=== PATIENT | female | born 2000 | race Caucasian/White ===

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

== ENCOUNTER 2019-10-30 20:23 | Emergency (ER) | payer MEDICAID, OTHER ==
--- NOTE | 2019-10-30 20:59 | EDM.PDOC ---
ED HPI GENERAL MEDICAL PROBLEM - General Chief Complaint: Gastrointestinal Problem Stated Complaint: VOMITING,WEAK,LOW TEMP Time Seen by Provider: 10/30/19 20:45 Source of Information: Reports: Patient History Limitations: Reports: No Limitations - History of Present Illness INITIAL COMMENTS - FREE TEXT/NARRATIVE: pt arrived very weak. She bnerly passed out twice today. She started vomiting late yesterday and she has vomited about 20 times, She has not had diarrhea. She does faint fsirly easily. She has not had a fever. When her checked it at home it was on the low side. She continues to be very nauseated. Onset: Today, Sudden Duration: Hour(s):, Other (pt is not having severe abdomanal pain. She did eat some liberian food last evening and she wondered if that caused a problem. ) Location: Reports: Abdomen Associated Symptoms: Reports: Loss of Appetite, Nausea/Vomiting, Syncope, Other (pt had marked weakness at home. 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 ) : Reports: No Symptoms Musculoskeletal: Reports: No Symptoms Skin: Reports: No Symptoms Neurological: Reports: No Symptoms Psychiatric: Reports: Anxiety ED EXAM, GI/ABD - Physical Exam Exam: See Below Text/Narrative:: pt arrived with a history of vomiting multiple times starting last pm. She was very weak today and nearly passed out several times. She has not held anything down today. SShe has not had severe abdomanal pain. Exam Limited By: No Limitations General Appearance: Alert, Anxious, Mild Distress Ears: Normal TMs Nose: Normal Inspection Throat/Mouth: Normal Inspection Head: Atraumatic Neck: Normal Inspection Respiratory/Chest: No Respiratory Distress Cardiovascular: Regular Rate, Rhythm, Tachycardia GI/Abdominal Exam: Soft, Non-Tender (Female) Exam: Deferred Rectal (Female) Exam: Deferred Back Exam: Normal Inspection Extremities: Normal Inspection Neurological: Alert, Oriented, Normal Cognition Psychiatric: Anxious Course - Vital Signs Last Recorded V/S: Last Vital Signs Temp 37.3 C 10/30/19 20:51 Pulse 92 10/30/19 20:51 Resp 16 10/30/19 20:51 BP 119/73 10/30/19 20:51 Pulse Ox 99 10/30/19 20:51 - Orders/Labs/Meds Orders: Active Orders 24 hr Category Date Time Status Sodium Chloride 0.9% [Normal Saline] 1,000 ml Med 10/30/19 21:15 Active IV ASDIRECTED Sodium Chloride 0.9% [Normal Saline] 1,000 ml Med 10/30/19 22:00 Active IV ASDIRECTED Medication Orders Sodium Chloride (Normal Saline) 1,000 mls @ 999 mls/hr IV ASDIRECTED EPIFANIO Last Admin: 10/30/19 21:33 Dose: 999 mls/hr Sodium Chloride (Normal Saline) 1,000 mls @ 999 mls/hr IV ASDIRECTED EPIFANIO Labs: Laboratory Tests 10/30/19 10/30/19 10/30/19 Range/Units 21:14 21:14 21:46 WBC 9.8 (4.5-11.0) K/uL RBC 5.00 (3.30-5.50) M/uL Hgb 14.1 D (12.0-15.0) g/dL Hct 41.8 (36.0-48.0) % MCV 84 (80-98) fL MCH 28 (27-31) pg MCHC 34 (32-36) % Plt Count 258 (150-400) K/uL Neut % (Auto) 63 (36-66) % Lymph % (Auto) 20 L (24-44) % [place] % (Auto) 16 H (2-6) % Eos % (Auto) 1 L (2-4) % Baso % (Auto) 0 (0-1) % Sodium 141 (140-148) mmol/L Potassium 3.8 (3.6-5.2) mmol/L Chloride 104 (100-108) mmol/L Carbon Dioxide 26 (21-32) mmol/L Anion Gap 10.9 (5.0-14.0) mmol/L BUN 16 (7-18) mg/dL Creatinine 0.8 (0.6-1.0) mg/dL Est Cr Clr Drug Dosing 102.97 mL/min Estimated GFR (MDRD) > 60 (>60) Glucose 99 (74-106) mg/dL Calcium 9.8 (8.5-10.1) mg/dL Total Bilirubin 1.2 H (0.2-1.0) mg/dL AST 50 H (15-37) U/L ALT 32 (12-78) U/L Alkaline Phosphatase 96 (46-116) U/L Total Protein 7.6 (6.4-8.2) g/dL Albumin 4.3 (3.4-5.0) g/dL Globulin 3.3 (2.3-3.5) g/dL Albumin/Globulin Ratio 1.3 (1.2-2.2) Urine Color [place] A (YELLOW) Urine Appearance Slightly cloudy A (CLEAR) Urine pH 7.0 (5.0-8.0) Ur Specific [place] 1.025 (1.008-1.030) Urine Protein 30 H (NEGATIVE) mg/dL Urine Glucose (UA) Negative (NEGATIVE) mg/dL Urine Ketones 40 H (NEGATIVE) mg/dL Urine Occult Blood Trace-intact H (NEGATIVE) Urine Nitrite Negative (NEGATIVE) Urine Bilirubin Small H (NEGATIVE) Urine Urobilinogen 1.0 (0.2-1.0) EU/dL Ur Leukocyte Esterase Negative (NEGATIVE) Urine RBC Not seen (0-5) Urine WBC 5-10 H (0-5) Ur Epithelial Cells Many Amorphous Sediment Few Urine Bacteria Not seen Urine Mucus Few Urine HCG, Qual 10/30/19 Range/Units 21:46 WBC (4.5-11.0) K/uL RBC (3.30-5.50) M/uL Hgb (12.0-15.0) g/dL Hct (36.0-48.0) % MCV (80-98) fL MCH (27-31) pg MCHC (32-36) % Plt Count (150-400) K/uL Neut % (Auto) (36-66) % Lymph % (Auto) (24-44) % [place] % (Auto) (2-6) % Eos % (Auto) (2-4) % Baso % (Auto) (0-1) % Sodium (140-148) mmol/L Potassium (3.6-5.2) mmol/L Chloride (100-108) mmol/L Carbon Dioxide (21-32) mmol/L Anion Gap (5.0-14.0) mmol/L BUN (7-18) mg/dL Creatinine (0.6-1.0) mg/dL Est Cr Clr Drug Dosing mL/min Estimated GFR (MDRD) (>60) Glucose (74-106) mg/dL Calcium (8.5-10.1) mg/dL Total Bilirubin (0.2-1.0) mg/dL AST (15-37) U/L ALT (12-78) U/L Alkaline Phosphatase (46-116) U/L Total Protein (6.4-8.2) g/dL Albumin (3.4-5.0) g/dL Globulin (2.3-3.5) g/dL Albumin/Globulin Ratio (1.2-2.2) Urine Color (YELLOW) Urine Appearance (CLEAR) Urine pH (5.0-8.0) Ur Specific [place] (1.008-1.030) Urine Protein (NEGATIVE) mg/dL Urine Glucose (UA) (NEGATIVE) mg/dL Urine Ketones (NEGATIVE) mg/dL Urine Occult Blood (NEGATIVE) Urine Nitrite (NEGATIVE) Urine Bilirubin (NEGATIVE) Urine Urobilinogen (0.2-1.0) EU/dL Ur Leukocyte Esterase (NEGATIVE) Urine RBC (0-5) Urine WBC (0-5) Ur Epithelial Cells Amorphous Sediment Urine Bacteria Urine Mucus Urine HCG, Qual Negative Meds: Medications Generic Name Dose Route Start Last Admin Trade Name Freq PRN Reason Stop Dose Admin Sodium Chloride 1,000 mls @ 999 mls/hr 10/30/19 21:15 10/30/19 21:33 Normal Saline IV 999 mls/hr ASDIRECTED EPIFANIO Administration Sodium Chloride 1,000 mls @ 999 mls/hr 10/30/19 22:00 Normal Saline IV ASDIRECTED EPIFANIO Discontinued Medications Generic Name Dose Route Start Last Admin Trade Name Freq PRN Reason Stop Dose Admin Ondansetron HCl 4 mg 10/30/19 21:03 10/30/19 21:33 Zofran IVPUSH 10/30/19 21:04 4 mg ONETIME ONE Administration - Re-Assessments/Exams Free Text/Narrative Re-Assessment/Exam: 10/30/19 22:22 pt was significantly dehydrated. She was given 2 liters of fluid. She had iv zoforan. 10/30/19 22:37 pt is taking ice chips and is holding that down. She is not having pain Departure - Departure Time of Disposition: 22:38 Disposition: Home, Self-Care 01 Condition: Fair Clinical Impression: Dehydration, Viral illness - Discharge Information Referrals: Mel Devlin PA-C [Primary Care Provider] - Forms: ED Department Discharge Care Plan Goals: clear liquids, zoforan 4 mg subling as needed for nausea. rtc if ongoing problems. Sepsis Event Note - Evaluation Sepsis Screening Result: No Definite Risk - Focused Exam Vital Signs: Vital Signs Temp Pulse Resp BP Pulse Ox 10/30/19 20:51 37.3 C 92 16 119/73 99 10/30/19 20:43 37.3 C 92 16 119/73 99 Date Exam was Performed: 10/30/19 Time Exam was Performed: 22:37 - My Orders Last 24 Hours: My Active Orders 10/30/19 21:15 Sodium Chloride 0.9% [Normal Saline] 1,000 ml IV ASDIRECTED 10/30/19 22:00 Sodium Chloride 0.9% [Normal Saline] 1,000 ml IV ASDIRECTED - Assessment/Plan Last 24 Hours: My Active Orders 10/30/19 21:15 Sodium Chloride 0.9% [Normal Saline] 1,000 ml IV ASDIRECTED 10/30/19 22:00 Sodium Chloride 0.9% [Normal Saline] 1,000 ml IV ASDIRECTED
[2019-10-30] MEDS ORDERED: Ondansetron 4 MG/2 ML SDV IVPUSH ONE ×2 (21:03→22:42)
[2019-10-30] MEDS: Sodium Chloride 0.9% 1,000 ML IV SCH ×2 (21:33→23:01)
[2019-10-30] MEDS ORDERED: Sodium Chloride 0.9% 1,000 ML IV SCH (22:00)
[2019-10-30 22:41] VITALS: BP 118/80; PULSE 71
== END 2019-10-30 23:30 | disposition home or self-care (01) ==
LOC: JP.ED 20:23
DX: E86.0 Dehydration (principal); B34.9 Viral infection, unspecified
CPT/HCPCS: 36415; 80053; 81001; 81025; 85025; 96361; 96374; 96376; 99284; J2405; J7030

== ENCOUNTER 2020-07-22 08:17 | Emergency (ER) | payer MEDICAID ==
[2020-07-22 08:46] VITALS: BP 119/69; PULSE 76
--- NOTE | 2020-07-22 09:15 | EDM.PDOC ---
ED HPI GENERAL MEDICAL PROBLEM - General Chief Complaint: Genitourinary Problem Stated Complaint: UTI??? Time Seen by Provider: 07/22/20 09:13 Source of Information: Reports: Patient History Limitations: Reports: No Limitations - History of Present Illness INITIAL COMMENTS - FREE TEXT/NARRATIVE: pt arrived with urinary frequency and marked burning. This started 2 hours ago. She has not been drinking fluids well. Onset: Today Duration: Hour(s): Location: Reports: Abdomen, Other ( urinary burning,. 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 07/05/17 - Past Surgical History Head Surgeries/Procedures: Reports: None Dermatological Surgical History: Reports: None Social & Family History - Tobacco Use Tobacco Use Status *Q: Never Tobacco User Second Hand Smoke Exposure: No - Caffeine Use Caffeine Use: Reports: Coffee, Soda - Recreational Drug Use Recreational Drug Use: No ED ROS GENERAL - Review of Systems Review Of Systems: See Below Constitutional: Reports: No Symptoms HEENT: Reports: No Symptoms Respiratory: Reports: No Symptoms Cardiovascular: Reports: No Symptoms Endocrine: Reports: No Symptoms : Reports: Dysuria, Frequency, Pain, Urgency Musculoskeletal: Reports: No Symptoms Skin: Reports: No Symptoms ED EXAM, GI/ABD - Physical Exam Exam: See Below Text/Narrative:: pt arrived with a 2 hour history of urinary frequency and burning. Exam Limited By: No Limitations General Appearance: Alert, Moderate Distress GI/Abdominal Exam: Non-Tender (Female) Exam: Deferred Rectal (Female) Exam: Deferred Back Exam: Normal Inspection Extremities: Normal Inspection Neurological: Alert, Oriented, Normal Cognition Course - Vital Signs Last Recorded V/S: Last Vital Signs Temp 36.3 C 07/22/20 08:37 Pulse 76 07/22/20 08:37 Resp 17 07/22/20 08:37 BP 119/69 07/22/20 08:37 Pulse Ox 100 07/22/20 08:37 - Orders/Labs/Meds Labs: Laboratory Tests 07/22/20 Range/Units 08:43 Urine Color Yellow (YELLOW) Urine Appearance Turbid A (CLEAR) Urine pH 5.5 (5.0-8.0) Ur Specific [place] >= 1.030 (1.008-1.030) Urine Protein 30 H (NEGATIVE) mg/dL Urine Glucose (UA) Negative (NEGATIVE) mg/dL Urine Ketones Negative (NEGATIVE) mg/dL Urine Occult Blood Moderate H (NEGATIVE) Urine Nitrite Negative (NEGATIVE) Urine Bilirubin Negative (NEGATIVE) Urine Urobilinogen 0.2 (0.2-1.0) EU/dL Ur Leukocyte Esterase Small H (NEGATIVE) Urine RBC 5-10 H (0-5) Urine WBC 5-10 H (0-5) Ur Epithelial Cells Moderate Amorphous Sediment Not seen Urine Bacteria Occasional Urine Mucus Not seen - Re-Assessments/Exams Free Text/Narrative Re-Assessment/Exam: 07/22/20 09:20 urine is concentrated and has a small number of wbcs. Departure - Departure Time of Disposition: 09:14 Disposition: Home, Self-Care 01 Condition: Fair Clinical Impression: UTI (urinary tract infection), Dehydration - Discharge Information Instructions: Urinary Tract Infection, Adult, [id number], Dehydration, Adult, [id number] Referrals: Mel Devlin PA-C [Primary Care Provider] - Forms: ED Department Discharge Care Plan Goals: push fluids, pyridium 200mg tid for the next 2 days. Cipro 500mg bid for 7 days. See own provider if not improving. Sepsis Event Note (ED) - Evaluation Sepsis Screening Result: No Definite Risk - Focused Exam Vital Signs: Vital Signs Temp Pulse Resp BP Pulse Ox 07/22/20 08:37 36.3 C 76 17 119/69 100 07/22/20 08:36 36.3 C 76 17 119/69 100
== END 2020-07-22 09:23 | disposition home or self-care (01) ==
LOC: JP.ED 08:17
DX: N39.0 Urinary tract infection, site not specified (principal); E86.0 Dehydration
CPT/HCPCS: 81001; 99283

== ENCOUNTER 2020-09-22 18:47 | Emergency (ER) | payer MEDICAID ==
[2020-09-22 19:03] VITALS: BP 138/77; PULSE 81
--- NOTE | 2020-09-22 19:31 | EDM.PDOC ---
ED HPI GENERAL MEDICAL PROBLEM - General Chief Complaint: Neck Problem Stated Complaint: RT SIDE NECK STRAIN Time Seen by Provider: 09/22/20 19:20 Source of Information: Reports: Patient History Limitations: Reports: No Limitations - History of Present Illness INITIAL COMMENTS - FREE TEXT/NARRATIVE: 19-year-old female with a vague discomfort in her right neck extending into the upper chest area for the past week. Initially she thought she may have "slept wrong" but the symptoms are persistent even after being at the clinic and getting some muscle relaxers. She has intermittent numbness in her shoulder and right jaw but no shortness of breath, cough, fever or chills. The pain does wax and wane but does not go away completely. She feels like her anterior right neck is "swollen". No difficulty swallowing. No previous symptoms like this. She has taken Zanaflex for the past 2 days but stopped it today because she does not like how it makes her feel. Onset: Sudden (Started fairly suddenly 7 days ago) Location: Reports: Neck, Chest (Right side) Worsens with: Reports: Other (Certain range of motions and lying down seem to make it worse) Associated Symptoms: Reports: Other (Some pleuritic-like pain with breathing in the right upper chest, a few intermittent paresthesias of the right jaw and right shoulder) Right Neck Pain Score (Numeric/FACES): 9 - Related Data Allergies Allergy/AdvReac Type Severity Reaction Status Date / Time No Known Allergies Allergy Verified 09/22/20 19:04 Home Meds: Home Meds Acetaminophen [Tylenol Extra Strength] 1 tab PO QID PRN 09/22/20 [History] tiZANidine [Zanaflex] 1 tab PO TID 09/22/20 [History] Past Medical History - Past Health History Medical/Surgical History: Denies 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 Denies: Fever, Chills HEENT: Denies: Throat Pain, Vision Change Respiratory: Reports: Pleuritic Chest Pain (Right upper chest especially anteriorly) GI/Abdominal: Reports: No Symptoms : Reports: No Symptoms Musculoskeletal: Reports: Neck Pain Skin: Reports: No Symptoms Neurological: Reports: Paresthesia (As mentioned in HPI) ED EXAM, GENERAL - Physical Exam Exam: See Below Exam Limited By: No Limitations General Appearance: Alert, No Apparent Distress Eye Exam: Bilateral Eye: Normal Inspection Head: Atraumatic Neck: Other (She has some discomfort with flexion of the neck against resistance, otherwise no pain with other range of motion. I really cannot palpa te any sore area on the paracervical muscles, shoulder or rhomboids that increased pain). No: Lymphadenopathy (R), Lymphadenopathy (L), Thyromegaly Respiratory/Chest: No Respiratory Distress, Lungs Clear Cardiovascular: Regular Rate, Rhythm Neurological: Alert, Oriented Psychiatric: Normal Affect, Normal Mood Skin Exam: Warm, Dry (No rash over painful area) Course - Vital Signs Last Recorded V/S: Last Vital Signs Temp 97.5 F 09/22/20 19:02 Pulse 81 09/22/20 19:02 Resp 16 09/22/20 19:02 BP 138/77 09/22/20 19:02 Pulse Ox 99 09/22/20 19:02 - Orders/Labs/Meds Orders: Active Orders 24 hr Category Date Time Status Chest 2V [CR] Routine Exams 09/22/20 19:25 Taken - Re-Assessments/Exams Free Text/Narrative Re-Assessment/Exam: 09/22/20 19:30 A 2 view chest x-ray will be obtained. This does not fit the PE as her O2 sats are normal, she is not tachycardic and has no cough. This does seem to be a deep muscle strain of some type or possibly apical pleurisy on the right side. If the chest x-ray is normal, a short course of prednisone may be worthwhile. 09/22/20 19:45 Chest x-ray is completely normal, patient remained stable. I prescribed a trial of prednisone, 40 mg daily for the next 3 to 5 days taken with your first meal of the day. She can continue with Zanaflex if helpful, I would avoid the heating pad. Return anytime if worsening such as shortness of breath or fever, otherwise recheck next week if not improving satisfactorily. Departure - Departure Time of Disposition: 19:56 Disposition: Home, Self-Care 01 Clinical Impression: Neck pain on right side - Discharge Information Instructions: Musculoskeletal Pain Referrals: Mel Devlin PA-C [Primary Care Provider] - Forms: ED Department Discharge Care Plan Goals: Increase activity as tolerated, take 40 mg or 4 pills of prednisone with your first meal each day for at least 3 days and up to 5 days if needed. Stop the heating pad, and return anytime if worsening such as increased shortness of breath or fever. Continue with muscle relaxer if you feel it is helpful. Recheck next week if not improving satisfactorily. Sepsis Event Note (ED) - Evaluation Sepsis Screening Result: No Definite Risk - Focused Exam Vital Signs: Vital Signs Temp Pulse Resp BP Pulse Ox 09/22/20 19:02 97.5 F 81 16 138/77 99 - My Orders Last 24 Hours: My Active Orders 09/22/20 19:25 Chest 2V [CR] Routine - Assessment/Plan Last 24 Hours: My Active Orders 09/22/20 19:25 Chest 2V [CR] Routine
--- NOTE | 2020-09-24 09:15 | CR ---
CHEST: 2 view CLINICAL HISTORY:Dyspnea COMPARISON:None FINDINGS: The heart size, pulmonary vascularity and hilar structures are normal. No infiltrate effusion or pneumothorax is seen. IMPRESSION: No acute cardiopulmonary process
== END 2020-09-22 19:57 | disposition home or self-care (01) ==
LOC: JP.ED 18:47
DX: M54.2 Cervicalgia (principal)
CPT/HCPCS: 71046; 71046-26; 99283; 99283-25

== ENCOUNTER 2020-09-30 19:37 | Emergency (ER) | payer MEDICAID ==
[2020-09-30 19:57] VITALS: BP 126/71; PULSE 74
--- NOTE | 2020-09-30 20:53 | EDM.PDOC ---
ED HPI GENERAL MEDICAL PROBLEM - General Chief Complaint: Neck Problem Stated Complaint: PAIN LEFT SIDE OF NECK Time Seen by Provider: 09/30/20 20:50 Source of Information: Reports: Patient History Limitations: Reports: No Limitations - History of Present Illness INITIAL COMMENTS - FREE TEXT/NARRATIVE: pt had pain in the rt ant cervical area about 2 weeks ago. She now has it re occuring. She also is doing alot of belching and feels like she has acid coming up in the throat. 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 ) Respiratory: Reports: No Symptoms Cardiovascular: Reports: No Symptoms Endocrine: Reports: No Symptoms GI/Abdominal: Reports: Other (pt is doing alot of belching) Musculoskeletal: Reports: Other (pt is tender in the rt anterior cervical area. ) Skin: Reports: No Symptoms ED EXAM, UPPER BACK/NECK PAIN - Physical Exam Exam: See Below Text/Narrative:: pt arrived with pain on the rt side of her neck and doing alot of belching. Exam Limited By: No Limitations General Appearance: Alert, Anxious, Moderate Distress Ears Exam: Normal TMs Nose Exam: Normal Inspection Throat/Mouth Exam: Normal Inspection Head Exam: Atraumatic Neck Exam: Other (pt has vwry tender muscles on the rt side of the neck Muscles feel very tight. ) Cardiovascular/Respiratory: Regular Rate, Rhythm GI/Abdominal: Soft, Non-Tender Neurologic: Alert Course - Vital Signs Last Recorded V/S: Last Vital Signs Temp 36.5 C 09/30/20 19:56 Pulse 74 09/30/20 19:56 Resp 16 09/30/20 19:56 BP 126/71 09/30/20 19:56 Pulse Ox 100 09/30/20 19:56 Departure - Departure Time of Disposition: 20:50 Disposition: Home, Self-Care 01 Condition: Fair Clinical Impression: Reflux gastritis, Cervical paraspinal muscle spasm - Discharge Information Instructions: Muscle Cramps and Spasms, [id number], Gastritis, Adult, [id number] Referrals: Mel Devlin PA-C [Primary Care Provider] - Forms: ED Department Discharge Care Plan Goals: torodol 10mg tid for pain moist warm packs to the rt ant cervical area, stretching exercises, prilosec for reflux and belching. --20 mg daily Sepsis Event Note (ED) - Evaluation Sepsis Screening Result: No Definite Risk - Focused Exam Vital Signs: Vital Signs Temp Pulse Resp BP Pulse Ox 09/30/20 19:56 36.5 C 74 16 126/71 100
== END 2020-09-30 21:00 | disposition home or self-care (01) ==
LOC: JP.ED 19:37
DX: M62.838 Other muscle spasm (principal); K21.9 Gastro-esophageal reflux disease without esophagitis; K29.70 Gastritis, unspecified, without bleeding
CPT/HCPCS: 99283

== ENCOUNTER 2022-07-24 22:38 | Emergency (ER) | payer MEDICAID ==
[2022-07-24 23:49] LABS: CORONAVIRUS COVID-19 NAA POSITIVE (NEGATIVE)
[2022-07-24] MEDS ORDERED: Dexamethasone 4 MG/ML SDV PO ONE (23:58)
[2022-07-25 00:06] VITALS: BP 117/69; PULSE 75
== END 2022-07-25 00:10 | disposition home or self-care (01) ==
LOC: JP.ED 22:38
DX: U07.1 COVID-19 (principal); J10.1 Influenza due to other identified influenza virus with other respiratory manifestations
CPT/HCPCS: 0241U; 36415; 71046; 85025; 99285; J8540